=== PATIENT | male | born 1950 | race Caucasian/White ===

== ENCOUNTER 2019-12-17 18:24 | Inpatient (IN) | payer OTHER ==
[~2019-12-17] VITALS: Ht 177.8 cm; Wt 114.8 kg
[2019-12-17] MEDS ORDERED: DIOVAN HCT 1601 EACH (18:32)
[2019-12-17] MEDS ORDERED: SINGULAIR10 MG (18:32)
[2019-12-17] MEDS ORDERED: TOPROL XL100 M1 (18:32)
--- NOTE | 2019-12-17 18:35 | NUR ---
PACIENTE ALERTA Y ORIENTADO POR SERA.REFIERE DOLOR ABDOMINOPELVICO POR DIVERTICULOS HACE APROSIMADAMENTE [address] STAHL LE INDICO PASAR DE EMERGENCIA POR DIVERTICULO PERFORADO Y SERA ATENDIDO POR DR Samanta TRAN.
--- NOTE | 2019-12-17 19:43 | NUR ---
PACIENTE ALERTA Y ORIENTADO X3. MANEJADO POR MISS. HINESNCOURT QUIEN ORIENTA A PACIENTE SOBRE PROCEDIMIENTO Y TRATAMIENTO A REALIZAR Y REFIERE ENTENDER. REALIZA MUESTRAS DE LABORATORIO BAJO MEDIDA ASEPTICAS. CANALIZACION PATENTE Y SUNNI DE EDEMA Y ERITEMA. ADMINISTRA MEDICAMENTOS NIKOLAS ORDEN MEDICA. PENDIENTE PLACA ORDENADA POR MD Y ADMINISTRACION DE LEXA 1G IV EL CUAL SE ENRRIQUE A BUSCAR CON SUPERVISION GENERAL. SE MANTIENE BAJO OBSERVACION POR CAMBIOS SIGNIFICATIVOS.
[2019-12-24] MEDS ORDERED: INTESTINEX680 M1 PO (07:46)
[2019-12-24] MEDS ORDERED: DICY20TA PO (07:47)
[2019-12-24] MEDS ORDERED: FLAGYL500MG PO (07:47)
== END 2019-12-24 15:29 | disposition home or self-care (01) | DRG 391 ==
LOC: ER 18:24 → SURH 19:48 → MEDJ 12-18 10:20 → SURH 12-18 11:02
PROVIDERS: ADMIT Surgery; ATTEND Surgery
PROC: 0W9G30Z Drainage of Peritoneal Cavity with Drainage Device, Percutaneous Approach (ICD-10-PCS; principal; 2019-12-19)
DX: K57.20 Diverticulitis of large intestine with perforation and abscess without bleeding (principal); U07.1 COVID-19; I10 Essential (primary) hypertension; E66.8 Other obesity; J45.20 Mild intermittent asthma, uncomplicated; G47.33 Obstructive sleep apnea (adult) (pediatric); B96.20 Unspecified Escherichia coli [E. coli] as the cause of diseases classified elsewhere; E11.65 Type 2 diabetes mellitus with hyperglycemia; Z79.4 Long term (current) use of insulin